=== PATIENT | female | born 1975 | race Caucasian/White ===

== ENCOUNTER → 2016-05-24 | Outpatient (CLI) | payer SELFPAY ==
[~2016-05-24] MED LIST: AMITRIPTYLINE PO; CARTIA XT120 MG PO; COZAAR25 MG PO; EFFER-K 10 MEQ10 MEQ PO; FLOVENT DI50 MCG/DIS INH; HYDROCODON-ACE1 EAC9 PO; IMITREX PO; LEVALBUTER1.25 MG/0. INH; LEVOXYL200 MC1 PO; LO-DOSE ASPIRIN81 M1 PO; LOMOTRIGINE PO; MULTI VITAMIN1 EACH PO; NORCO PO; OMEPRAZOLE20 M2 PO; SOTALOL PO; SPIRONOLACTONE-1 TAB PO; SYMBICORT INH; TOLTERODINE TART4 MG PO; XANAX2 MG PO; [UNRECOGNIZED DRUG - OTHER]
== END | disposition home or self-care (01) ==
LOC: CBAR 10:44
DX: E66.01 Morbid (severe) obesity due to excess calories (principal)
CPT/HCPCS: 76000

== ENCOUNTER 2016-05-30 07:40 | Inpatient (IN) | payer OTHER ==
--- NOTE | ~2016-05-30 | BMI ---
[facility] Nutrition Therapy DATE: 06/01/16 Patient: BENNY WHARTON Physician: LUANN Address: [address] [place] [address] Room/Bed: [address] [place] [address], Zip: [place] [address] Admit Date: 05/30/16 Date of : [birth year] Height: 5 5 Weight: 252 114.5 HIGH BMI NOTE: DX: 40 yo female admitted for gastric band erosion ANTHROPOMETRICS: Ht: 5'5" Wt: 114.5 kg (252#) BMI: 42.0 DIET: Clear liquid INTERVENTION: Clear liquid RECOMMENDATIONS: 1. Once medically feasible, advance diet as tolerated to a healthy heart diet to promote gradual weight loss towards healthy BMI. RD will f/u per protocol. Respectfully, Lizzie Carcamo, Executor Of Estate Judy Vega MS, RD, LD Food and Nutritional Services [facility] cc: client file
--- NOTE | ~2016-05-30 | CR97 ---
[facility] A Service of [facility] RADIOLOGY TEXT RESULTS PATIENT: BENNY WHARTON LOCATION: [facility] [id number] : [birth year] UNIT #: [id number] AGE: [address]: Ankit Barahona MD SEX: F ORDER DR: [id number] [facility] [address] [place] [place], [place] [address] [id number] I MR#: [id number] Acc #: [id number] NAME: BENNY WHARTON : 1975 SEX: F STUDY DATE/TIME: 05/31/2016 10:25 UNIT: [facility] ROOM: [facility] STUDY DESCRIPTION: CR Esophagram Attending Physician: Ankit Barahona M.D. Referring Physician: Ankit Barahona M.D. Ordering Physician: Ankit Barahona M.D. Primary Care Physician: Nicolás Zee M.D. MEDICAL IMAGING REPORT This report is preliminary unless electronic signature is present EXAM Single contrast Gastrografin swallow HISTORY This is a patient who underwent removal of a laparoscopic gastric band 1 day ago. Exam is requested to evaluate for possible leak. FINDINGS Initial marine painter image showed a preexisting drainage catheter within the upper abdomen as well as a nasogastric tube. Gastrografin was administered through the tube, no obvious leakage of contrast material was identified. Examination was significantly degraded by patient's lack of mobility. She does appear to have abnormal esophageal motility with poor stripping of the esophagus and is somewhat patulous appearance to the esophagus. Total fluoroscopy time was 1 minute and a total of 10 fluoroscopic images were obtained. IMPRESSION 1. No obvious leak identified. Please note exam was significantly limited due to this patient's lack of mobility, 2. 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 Dictated by... Ciara Campos M.D. THIS IS AN ELECTRONICALLY VERIFIED REPORT Ciara Campos M.D. at 06/01/2016 7:46 AM AFF/rnr TD: 05/31/2016 14:56 JOB #: [id number] [facility] A Service of [facility] & [facility] RADIOLOGY TEXT RESULTS PATIENT: BENNY WHARTON LOCATION: [facility] [id number] : [birth year] UNIT #: [id number] AGE: [address]: Ankit Barahona MD SEX: F ORDER DR: MEDICAL IMAGING REPORT Page 1 of 1 COPY
--- NOTE | ~2016-05-30 | OR ---
Unit #: [id number] #: [id number] Patient: BENNY WHARTON [id number] [facility] [address] [facility] [place], [place] [address] [id number] Edis MR#: [id number] NAME: BENNY WHARTON ROOM: [facility] Date of Procedure: 05/30/2016 Admission Date: 05/30/2016 Surgeon: Ankit Barahona M.D. : 1975 Attending Physician: Ankit Barahona M.D. Referring Physician: Ankit Barahona M.D. Primary Care Physician: Nicolás Zee M.D. OPERATIVE REPORT PREOPERATIVE DIAGNOSIS Laparoscopic adjustable gastric band erosion. POSTOPERATIVE DIAGNOSIS Laparoscopic adjustable gastric band erosion. PROCEDURES PERFORMED 1. Removal of laparoscopic adjustable gastric band. 2. Removal of laparoscopic band port. 3. Repair of gastrotomy. REPORTING SPECIALIST [place]. ANESTHESIA General endotracheal anesthesia. ESTIMATED BLOOD LOSS Minimal. IV FLUIDS 800 crystalloid. COMPLICATIONS None. INDICATIONS FOR PROCEDURE The patient is a 40-year-old, who presents with band erosion, found on upper endoscopy. DESCRIPTION OF PROCEDURE The patient was taken to the operating theater and placed in the supine position. General anesthesia was induced. The abdomen was prepped and draped. A 10-mm Visiport was then placed in the left upper quadrant without difficulty. The abdomen was insufflated to 15 mmHg with CO2. General inspection revealed, I was able to visualize the tubing, there was minimal intra-abdominal inflammation. I thus cut down our port site making an incision of approximately 3 cm. The port was identified and dissected free of its connective tissue and then removed. I cut the tubing and dropped it into the abdomen. I placed a 10 mm port at the site, a right upper quadrant 5 mm, a left lower quadrant 5 mm into the [place] liver retractor. I was able to identify the tubing. I Unit #: [id number] #: [id number] Patient: BENNY WHARTON dissected it using Bovie electrocautery down to the buckle. The buckle was undone. The band was then cut and removed. There was an obvious erosion with staining of the band. I then irrigated with normal saline and then repaired the gastrotomy with 0 Ethibond sutures. NG tube was placed. I then placed a Davide-Valenzuela drain over our area of repair. I removed the band pieces via the 10 mm port site. Hemostasis was adequate. I then removed the ports and closed with 4-0 Vicryl. The patient tolerated the procedure well, sent to the recovery room in good condition. Dictated by... Roderick Shukla/anna TD: 05/31/2016 01:10 JOB #: [id number] OPERATIVE REPORT Page 1 of 1 X Ankit Barahona MD X PROCEDURE OPERATIVE NOTE
--- NOTE | ~2016-05-30 | DS ---
Unit #: [id number] #: [id number] Patient: BENNY WHARTON [id number] [address] [place], [place] [address] [id number] I MR#: [id number] NAME: BENNY WHARTON ROOM: [facility] Age: 40 Sex: F Admission Date: 05/30/2016 : 1975 Discharge Date: Attending Physician: Ankit Barahona M.D. Referring Physician: Ankit Barahona M.D. Primary Care Physician: Nicolás Zee M.D. DISCHARGE SUMMARY DIAGNOSIS Laparoscopic band erosion. PROCEDURE PERFORMED Removal of laparoscopic adjustable gastric band. HOSPITAL COURSE The patient is a 40-year-old lady, who presented with band erosion. She underwent removal. Postop course was relatively uncomplicated. Upper GI revealed no evidence of leak. She was advanced towards liquid diet for which she tolerated. Davide-Valenzuela drain was removed. DISPOSITION The patient will be discharged home in good condition. DISCHARGE INSTRUCTIONS She is to follow regular diet as tolerated. Activity levels were discussed. She is to follow up with Dr. Barahona in 10 days. DISCHARGE MEDICATIONS Regular home medications, Boaz 7.5 mg q.4 p.r.n. and Augmentin 875 mg b.i.d. Dictated by... Roderick Shukla/anna TD: 06/03/2016 07:50 JOB #: [id number] DISCHARGE SUMMARY Page 1 of 1 X Ankit Barahona MD X DISCHARGE SUMMARY
[2016-05-30] MEDS ORDERED: EFFER-K 10 MEQ10 MEQ PO (08:44)
[2016-05-30] MEDS ORDERED: SYMBICORT INH (08:45)
[2016-05-30] MEDS ORDERED: COZAAR25 MG PO (08:46)
[2016-05-30] MEDS ORDERED: TOLTERODINE TART4 MG PO (08:47)
[2016-05-30] MEDS ORDERED: CARTIA XT120 MG PO (08:47)
[2016-05-30] MEDS ORDERED: LEVOXYL200 MC1 PO (08:49)
[2016-05-30] MEDS ORDERED: SPIRONOLACTONE-1 TAB PO (08:49)
[2016-05-30] MEDS ORDERED: FLOVENT DI50 MCG/DIS INH (08:51)
[2016-05-30] MEDS ORDERED: LEVALBUTER1.25 MG/0. INH (08:53)
[2016-05-30] MEDS ORDERED: LO-DOSE ASPIRIN81 M1 PO (08:54)
[2016-05-30] MEDS ORDERED: AMITRIPTYLINE PO (08:54)
[2016-05-30] MEDS ORDERED: IMITREX PO (08:55)
[2016-05-30] MEDS ORDERED: LOMOTRIGINE PO (08:57)
[2016-05-30] MEDS ORDERED: MULTI VITAMIN1 EACH PO (08:57)
[2016-05-30] MEDS ORDERED: XANAX2 MG PO (08:58)
[2016-05-30] MEDS ORDERED: NORCO PO (08:58)
[2016-05-30] MEDS ORDERED: OMEPRAZOLE20 M2 PO (08:59)
[2016-05-30] MEDS ORDERED: SOTALOL PO (09:00)
[2016-05-30 10:16] LABS: CALCIUM SERUM 8.9 mg/dL (8.4-10.2)
[2016-05-31 03:56] LABS: HEMATOCRIT 38.8 % (35.0-45.0); HEMOGLOBIN 12.8 gm/dL (12.0-16.0); MEAN CELL VOLUME 91.9 FL (83-96); MEAN CORPUSCULAR HEMOGLOBIN 30.4 PG (28-34); MEAN CORPUSCULAR HGB CONC 33.1 g/dL (30-36); MEAN PLATELET VOLUME 9.9 FL (6.5-11.5); RED BLOOD COUNT 4.23 X10e (3.90-5.30); RED CELL DISTRIBUTION WIDTH 14.5 % (11.0-15.5); WHITE BLOOD COUNT 16.5 X10e3 (4.0-10.5)
[2016-05-31 04:13] LABS: BUN/CREATININE RATIO 10.9; CALCIUM SERUM 8.4 mg/dL (8.4-10.2); CREATININE SERUM 1.1 mg/dL (0.6-1.4); GLOM FILT RATE Estimated 62.3 mL/min (>60); POTASSIUM 3.8 mmol/L (3.5-5.1)
[2016-06-01 05:49] LABS: BASOPHIL# 0.1 X10e3 (0-0.3); BASOPHIL% 0.5 % (0-2.5); EOSINOPHIL% 0.1 % (0.0-7.0); HEMATOCRIT 37.8 % (35.0-45.0); HEMOGLOBIN 12.6 gm/dL (12.0-16.0); LYMPHOCYTE# 1.1 X10e3 (1.0-3.5); LYMPHOCYTE% 7.5 % (17.0-45.0); MEAN CELL VOLUME 91.7 FL (83-96); MEAN CORPUSCULAR HEMOGLOBIN 30.5 PG (28-34); MEAN CORPUSCULAR HGB CONC 33.3 g/dL (30-36); MEAN PLATELET VOLUME 10.1 FL (6.5-11.5); MONOCYTE# 0.7 X10e3 (0-1.0); MONOCYTE% 4.7 % (3.0-12.0); NEUTROPHIL# 12.6 X10e3 (1.5-7.1); NEUTROPHIL% 87.2 % (40-75); PLATELET COUNT 171 X10e3 (140-420); RED BLOOD COUNT 4.12 X10e (3.90-5.30); RED CELL DISTRIBUTION WIDTH 14.4 % (11.0-15.5); WHITE BLOOD COUNT 14.5 X10e3 (4.0-10.5)
[2016-06-01 05:50] LABS: DIFF IND NO
[2016-06-01 06:10] LABS: BUN/CREATININE RATIO 8.63; CALCIUM SERUM 8.2 mg/dL (8.4-10.2); CREATININE SERUM 2.2 mg/dL (0.6-1.4); POTASSIUM 3.8 mmol/L (3.5-5.1)
[2016-06-02 04:42] LABS: BUN/CREATININE RATIO 7.64; CREATININE SERUM 3.4 mg/dL (0.6-1.4); GLOM FILT RATE Estimated 15.9 mL/min (>60); POTASSIUM 4.4 mmol/L (3.5-5.1)
[2016-06-03] MEDS ORDERED: [UNRECOGNIZED DRUG - OTHER] (10:15)
[2016-06-03] MEDS ORDERED: HYDROCODON-ACE1 EAC9 PO (10:15)
== END 2016-06-03 11:15 | disposition home or self-care (01) | DRG 327 ==
LOC: CSUR 07:40 → CPACUOF 12:37 → C4C 14:29
PROVIDERS: Surgery
PROC: 0DQ64ZZ Repair Stomach, Percutaneous Endoscopic Approach (ICD-10-PCS; 2016-05-30)
PROC: 0D9670Z Drainage of Stomach with Drainage Device, Via Natural or Artificial Opening (ICD-10-PCS; 2016-05-30)
PROC: 0DP64CZ Removal of Extraluminal Device from Stomach, Percutaneous Endoscopic Approach (ICD-10-PCS; principal; 2016-05-30 10:30)
DX: K95.09 Other complications of gastric band procedure (principal); Z68.44 Body mass index [BMI] 60.0-69.9, adult; I10 Essential (primary) hypertension; I48.91 Unspecified atrial fibrillation; G43.909 Migraine, unspecified, not intractable, without status migrainosus; Z85.850 Personal history of malignant neoplasm of thyroid; F17.210 Nicotine dependence, cigarettes, uncomplicated; J44.9 Chronic obstructive pulmonary disease, unspecified; E66.9 Obesity, unspecified; Z90.710 Acquired absence of both cervix and uterus; F41.9 Anxiety disorder, unspecified; M19.90 Unspecified osteoarthritis, unspecified site; F31.9 Bipolar disorder, unspecified; E78.00 Pure hypercholesterolemia, unspecified
CPT/HCPCS: 74220; 80048; 80202; 85025; 85027; 97163; 97167; 97535; C9113; J0330; J1100; J1170; J1644; J2250; J2270; J2405; J2543; J2710; J3010; J3370